=== PATIENT | male | born 1995 | race Caucasian/White ===

== ENCOUNTER 2017-12-31 09:03 | Emergency (ER) | payer OTHER ==
[2017-12-31] MEDS ORDERED: Valproic Acid IV(*) 1,000 MG in NS 0.9% 100 ML* 100 ML IVPB ONE (09:22)
--- NOTE | 2017-12-31 09:51 | RAD ---
Indication: Seizure like episode this morning. Lethargy. Comparison: No relevant prior exams available on the [facility] [place] PACS for comparison. Technique: Noncontrast CT vertex of skull through foramen magnum. Report: Suboptimal positioning with RIGHT inferior tilt of the head. Unremarkable cerebral sulci, ventricles, and basal cisterns. Negative for paul matter white matter obscuration, intra or extra-axial hemorrhage, or mass effect. Unremarkable orbital contents. No fracture or lesion of the calvarium or skull base evident. Clear paranasal sinuses and mastoid air spaces. Negative for scalp hematoma. IMPRESSION: #. Negative unenhanced head CT.
[2017-12-31 10:05] LABS: ABS Basophils 0 10^3/ul (0-0.2); ABS Eosinophils 0.1 10^3/ul (0-0.6); ABS Lymphocytes 1.5 10^3/ul (1.0-4.8); ABS Monocytes 0.6 10^3/ul (0-0.8); ABS Neutrophils 9.6 10^3/ul (1.5-7.7); ABS Nucleated RBC 0 10^3/ul; Eosinophil % 0.5 % (0-6); Hematocrit 44 % (42-52); Hemoglobin 14.7 g/dl (14.0-18.0); Lymphocyte % 12.9 % (25-47); Mean Corpuscular HGB Conc 34 g/dl (31-36); Mean Corpuscular Hemoglobin 29 pg (27-31); Mean Corpuscular Volume 85 fL (80-94); Mean Platelet Volume 7.8 um3 (7.4-10.4); Nucleated Red Blood Cells % 0.2; Platelet Count 257 10^3/ul (150-450); Red Blood Count 5.11 10^6/ul (4.00-5.40); Red Cell Distribution Width 14 % (10.5-15); White Blood Count 11.8 10^3/ul (3.5-10.8)
[2017-12-31 10:10] LABS: INR 1.03 (0.77-1.02)
--- NOTE | 2017-12-31 10:12 | UC ---
Seizure HPI - HPI Summary HPI Summary: 22-year-old male with history of severe autism presents by ambulance with chief complaint of tonic-clonic seizure. Mother reports that she witnessed a tonic- clonic seizure and possible fall at 8 AM this morning. This lasted approximately 5 minutes after which time he is very confused. He is now alert but very sleepy. He has never had any seizure before but did have an abnormal EEG in his childhood years when he was being worked up for autism. He has not recently had any alcohol, cold symptoms, injury. There is nothing in particular that mom thinks may have provoked this. - History Of Current Complaint Chief Complaint: EDSeizure Stated Complaint: SEIZURE Time Seen by Provider: 12/31/17 09:08 Hx Obtained From: Family/Human Resources Associate - Allergies/Home Medications Allergies/Adverse Reactions: Allergies Allergy/AdvReac Type Severity Reaction Status Date / Time chloral hydrate Allergy Rash Verified 12/31/17 09:43 PMH/Surg Hx/FS Hx/Imm Hx Previously Healthy: No - autism - Surgical History Surgical History: Unable to Obtain/Confirm - Family History Known Family History: Positive: Hypertension - Social History Occupation: Disabled Lives: With Family Alcohol Use: None Substance Use Type: None Smoking Status (MU): Never Smoked Tobacco Review of Systems Constitutional: Negative Eyes: Negative ENT: Other - bleeding from mouth Neurological: Other - seizure Psychological: Other - autism, anxiety All Other Systems Reviewed And Are Negative: Yes Physical Exam Triage Information Reviewed: Yes Completion Of Physical Exam Limited Due To: Other - somnulent, non-verbal Appearance: No Pain Distress Vital Signs: Initial Vital Signs Temp 0 F 12/31/17 09:11 Pulse 0 12/31/17 09:11 Resp 20 12/31/17 09:11 BP 0/0 12/31/17 09:11 Pulse Ox 0 12/31/17 09:11 Eyes: Positive: Conjunctiva Clear ENT: Positive: Other - contusion to R lateral tongue with dried blood on lips Neck: Positive: Supple, Nontender Respiratory: Positive: Chest non-tender, Lungs clear Cardiovascular: Positive: RRR Abdomen Description: Positive: Nontender, Soft Musculoskeletal: Positive: Strength Intact, ROM Intact Neurological: Positive: Alert, Muscle Tone Normal, Fatigued, Other: - non-verbal Psychological: Positive: Other: - flat, somnulent Skin Exam: Normal Diagnostics - Laboratory Diagnostic Studies Completed/Ordered: CBC: 11.8 WBC. CMP: WNL. Alcohol: 0. Coags: WNL - Radiology CT brain Radiology Interpretation Completed By: Radiologist - No acute findings - EKG Cardiac Rate: NL Cardiac Rhythm: Sinus: Normal Ectopy: None ST Segment: Normal EKG Comparison: No Significant Change Re-Evaluation - Re-Evaluation First Eval Re-Evaluation Time: 11:04 Change: Improved - Now verbal, back to baseline per family Seizure Course/Dx - Course Course Of Treatment: Pt with first seizure, a tonic-clonic episode. Discussed with the neurologist about medication for him and he would like the patient loaded on Depakote 1 g. This was provided. The patient has returned to normal baseline mental status. Head CT negative. Laboratories unrevealing. Follow- up with neurology outpatient closely likely will need EEG, etc. Continue on twice a day Depakote 500 mg. - Differential Dx/Diagnosis Differential Diagnosis/HQI/PQRI: Metabolic Disorder, Metastatic Disease, New Onset Seizure, Toxic Exposure Provider Diagnoses: New onset generalized seizure. Autism spectrum disorder. Tongue contusion, right - Physician Notification/Consults Discussed Patient Care With: Valentina Hudson - load Depakote 1g IV Discharge - Sign-Out/Discharge Documenting (check all that apply): Patient Departure - Discharge Plan Condition: Improved Disposition: HOME Prescriptions: Divalproex Sodium [Depakote] 500 mg PO BID #60 tablet.dr Patient Education Materials: Generalized Tonic Clonic Seizures (ED) Referrals: [facility] [Outside] [facility] [Outside] Valentina Hudson MD [Medical Doctor] - Additional Instructions: Call today to schedule prompt follow-up with the neurologist. Begin the Depakote treatment later tonight. Return with repeat seizure, fever, worse, new symptoms or other concerns as discussed. - Billing Disposition and Condition Condition: IMPROVED Disposition: Home - Attestation Statements Document Initiated by Gale: Ellen
[2017-12-31 10:22] LABS: EGFR Non-African American 119.2 (>60)
[2017-12-31 11:00] VITALS: BP 122/83
== END 2017-12-31 11:38 | disposition home or self-care (01) ==
LOC: ED 09:03
DX: G40.409 Other generalized epilepsy and epileptic syndromes, not intractable, without status epilepticus (principal); F84.0 Autistic disorder; S00.532A Contusion of oral cavity, initial encounter; X58.XXXA Exposure to other specified factors, initial encounter; Y92.9 Unspecified place or not applicable
CPT/HCPCS: 36415; 70450; 80053; 80320; 82550; 83605; 83735; 84443; 85025; 85610; 93005; 96360; 99282; G0480